=== PATIENT | male | born 2000 | race Caucasian/White ===

== ENCOUNTER 2025-05-06 01:32 | Emergency (ER) | payer SELFPAY ==
[~2025-05-06] VITALS: Ht 167.6 cm; Wt 75.0 kg
[2025-05-06 01:40] VITALS: O2SAT 98
[2025-05-06 02:44] LABS: BASOPHILS % 0.3 % (0.0-2.0); EOSINOPHILS % 0.3 % (0.0-5.0); HEMATOCRIT. 43.3 % (42.0-52.0); HEMOGLOBIN. 14.8 g/dL (14.0-18.0); LYMPHOCYTES % 31.3 % (20.0-50.0); MEAN PLATELET VOLUME 8.3 fl (7.4-10.4); MONOCYTES % 5.4 % (2.0-8.0); NEUTROPHILS % 62.7 % (40.0-76.0); PLATELET 300 x1000/uL (130-400); RED BLOOD CELL COUNT 5.18 mill/uL (4.7-6.1); RED CELL DISTRIBUTION WIDTH 13.7 % (11.6-14.6)
[2025-05-06] MEDS: LIDOCAINE HCL 1% 20ML VIAL INFIL ONE (02:58)
[2025-05-06 03:09] LABS: CREATININE 0.7 mg/dL (0.6-1.3); UREA NITROGEN BLOOD 10 mg/dL (9-23)
[2025-05-06 03:10] LABS: ETHANOL BLOOD 269 mg/dL (<10)
[2025-05-06 03:11] LABS: ASPARTATE AMINOTRANSFERASE 45 IU/L (<34); BILIRUBIN DIRECT 0.1 mg/dL (<=3.0)
[2025-05-06 03:12] LABS: BILIRUBIN TOTAL 0.5 mg/dL (0.1-1.0); PROTEIN TOTAL 8.1 g/dL (6.0-8.3)
[2025-05-06 06:50] LABS: CLARITY URINE CLEAR (CLEAR); COLOR URINE YELLOW (YELLOW); GLUCOSE URINE NEGATIVE (NEGATIVE); KETONES URINE NEGATIVE (NEGATIVE); LEUKOCYTE ESTERASE URINE NEGATIVE (NEGATIVE); NITRITE URINE NEGATIVE (NEGATIVE); OCCULT BLOOD URINE NEGATIVE (NEGATIVE); PH URINE 5.0 (4.5-8.0); PROTEIN URINE 1+ (NEGATIVE); SPECIFIC GRAVITY URINE 1.021 (1.005-1.030); UROBILINOGEN URINE 0.2 E.U./dL (0.2-1.0)
[2025-05-06 07:09] LABS: *AMPHETAMINES SCREEN URINE NEGATIVE (NEGATIVE); *BENZODIAZEPINES SCREEN URINE NEGATIVE (NEGATIVE)
[2025-05-06 07:10] LABS: *BARBITURATES SCREEN URINE NEGATIVE (NEGATIVE); *COCAINE SCREEN URINE NEGATIVE (NEGATIVE); CANNABINOID URINE SCREEN NEGATIVE (NEGATIVE); ECSTASY MDMA SCREEN URINE NEGATIVE (NEGATIVE); METHADONE URINE SCREEN NEGATIVE (NEGATIVE); OPIATES URINE SCREEN NEGATIVE (NEGATIVE); PHENCYCLIDINE URINE SCREEN NEGATIVE (NEGATIVE)
[2025-05-06 07:16] LABS: SQUAMOUS EPITHELIAL CELL URINE NONE SEEN /lpf (RARE/1+)
[2025-05-06 07:17] LABS: BACTERIA URINE NONE SEEN; RBC URINE NONE SEEN /hpf (0-2); WBC URINE 0-2 /hpf (0-2)
[2025-05-06 07:18] LABS: FINE GRANULAR CASTS URINE 0-5 /lpf
[2025-05-06] MEDS: FLUOXETINE HCL 10 MG CAPSULE PO SCH (11:15)
[2025-05-06] MEDS: HYDROXYZINE 25MG TABLET PO PRN (11:15)
[2025-05-08] VITALS: TEMP 36.8
[2025-05-08] MEDS: FLUOXETINE HCL 10 MG CAPSULE PO SCH (10:45)
[2025-05-09 11:39] VITALS: BP 143/95; PULSE 84; RESP 16; O2SAT 100
== END 2025-05-09 12:00 | disposition home or self-care (01) ==
LOC: ER 01:32
DX: S51.812A Laceration without foreign body of left forearm, initial encounter (principal); R45.851 Suicidal ideations; F10.129 Alcohol abuse with intoxication, unspecified; F32.9 Major depressive disorder, single episode, unspecified; Z79.899 Other long term (current) drug therapy; Z20.822 Contact with and (suspected) exposure to COVID-19; X83.8XXA Intentional self-harm by other specified means, initial encounter; Y93.89 Activity, other specified; Y92.89 Other specified places as the place of occurrence of the external cause; Y99.8 Other external cause status; Y90.9 Presence of alcohol in blood, level not specified
CPT/HCPCS: 80076; 80305; 80048; 81003; 80307; 80329; 80320; 83690; 85025; 36415; 12002; 99285; 87426; J2003; Z7610 ×2; G0480